=== PATIENT | female | born 1985 | race Hispanic/Latino ===

== ENCOUNTER 2022-05-19 02:59 | Emergency (ER) | payer MEDICAID ==
[~2022-05-19] VITALS: Ht 144.8 cm; Wt 59.0 kg
[2022-05-19] MEDS ORDERED: MORPHINE 4 MG SYG IM ONE (04:30)
[2022-05-19] MEDS ORDERED: CEPH500B PO (04:40)
[2022-05-19] MEDS ORDERED: ACET-2079 PO (04:40)
[2022-05-19] MEDS ORDERED: ACYC-138 PO (04:40)
[2022-05-19 04:59] VITALS: BP 168/99
== END 2022-05-19 05:23 | disposition home or self-care (01) ==
LOC: EDH 02:59
DX: B02.9 Zoster without complications (principal); L73.9 Follicular disorder, unspecified; R03.0 Elevated blood-pressure reading, without diagnosis of hypertension; Z90.49 Acquired absence of other specified parts of digestive tract
CPT/HCPCS: 99283; 96372; J2270